=== PATIENT | female | born 1960 | race Caucasian/White ===

== ENCOUNTER 2025-02-12 17:16 | Emergency (ER) | payer SELFPAY ==
[2025-02-12] VITALS (7 sets, daily range): BP systolic 195–229; BP diastolic 88–100; PULSE 75–97; RESP 16; TEMP 36.6; O2SAT 98–100; BMI 18.1
--- NOTE | 2025-02-12 21:02 | ED_ITS ---
HPI - Dental/Oral General Chief complaint: Dental/Oral Stated complaint: headache, dental pain, throat pain Time Seen by Provider: 02/12/25 18:00 History of Present Illness HPI Narrative: 64-year-old female history of hypertension presents with right jaw pain and swelling that has been ongoing for some time but worse in the past few days for which she has not yet seen a dentist. She is able to eat and drink and swallow with no difficulty. Patient denies fever, chills, body aches, sore throat, cough. She has not taken anything for the pain. Other than what is stated 14 point review of system is negative. Location: Tooth # (29) Related Data Previous Rx's ?Medication ?Instructions ?Recorded diclofenac sodium 75 mg 75 mg PO BID PRN pain #30 ta bs 02/12/25 tablet,delayed release penicillin V potassium 500 mg 500 mg PO Q6H #28 tabs 0 02/12/25 tablet Allergies Allergy/AdvReac Type Severity Reaction Status Date / Time No Known Drug Allergies Allergy Verified 02/12/25 17:54 Review of Systems Review of Systems ROS Unobtainable: All systems reviewed & are unremarkable except as noted in HPI and below Patient History Smoking Status: Current every day smoker tobacco type: cigarettes Exam Narrative Exam Narrative: GENERAL: [64] year old patient appears stated age. Well-developed patient, in mild distress. HEAD: Atraumatic. Normocephalic. EYES: Pupils equal round and reactive. Extraocular motions intact. No scleral icterus. No injection or drainage. ENT: Nose without bleeding, purulent drainage. Throat without erythema, tonsillar hypertrophy or exudate. Airway patent. Dental caries 29, poor dentition overall NECK: Trachea midline. Non tender EXTREMITIES: No edema or joint tenderness. BACK: Nontender without deformity or crepitance. No flank tenderness. NEURO: AOx3. SKIN: No rash or erythema of visible areas Initial Vital Signs Initial Vital Signs: Vital Signs Temperature 97.8 F 02/12/25 17:52 Pulse Rate 97 H 02/12/25 17:52 Respiratory Rate 16 02/12/25 17:52 Blood Pressure 195/88 H 02/12/25 17:52 Pulse Oximetry 99 02/12/25 17:52 Oxygen Delivery Method Room Air 02/12/25 17:52 Course Vital Signs Vital signs: Vital Signs - 8 hr 02/12/25 17:52 02/12/25 19:57 02/12/25 19:58 Temperature 97.8 F Pulse Rate 97 H 85 85 Respiratory Rate 16 Blood Pressure 195/88 H Pulse Oximetry 99 99 100 Oxygen Delivery Method Room Air 02/12/25 19:58 02/12/25 20:00 02/12/25 20:00 Temperature Pulse Rate 77 Respiratory Rate Blood Pressure 229/100 H 211/96 H Pulse Oximetry 98 Oxygen Delivery Method Room Air 02/12/25 20:30 Temperature Pulse Rate 75 Respiratory Rate Blood Pressure Pulse Oximetry 100 Oxygen Delivery Method MDM - Dental/Oral MDM Narrative Medical decision making narrative: Vital signs, nurse triage note, medication list, previous ER visits, and all imaging studies reviewed. Patient given pen VK [place] and ibuprofen he. Patient will be discharged on pen VK and diclofenac. And to follow up with dentist. Differential diagnosis dental abscess, dental caries, gingivitis. Discharge Plan Departure Patient Disposition: Home Clinical Impression: Dental abscess Instructions: Tooth Abscess Activity Restrictions/Additional Instructions: Return with new or worsening symptoms. Take your medicines directed. Follow up with dentist in 1-2 weeks. Prescriptions: New penicillin V potassium 500 mg tablet 500 mg PO Q6H Qty: 28 0RF diclofenac sodium 75 mg tablet,delayed release (DR/EC) 75 mg PO BID PRN (Reason: pain) Qty: 30 0RF Stand Alone Forms: Patient Portal/API
[2025-02-12] MEDS: PENICILLIN VK 250 MG TABLET 500 MG PO (21:09)
[2025-02-12] MEDS: HYDROCODONE/ACET 5/325 TABLET 1 TAB PO (21:09)
[2025-02-12] MEDS: IBUPROFEN 400 MG TABLET 800 MG PO (21:10)
== END 2025-02-12 21:17 | disposition home or self-care (01) ==
PROVIDERS: Emergency Provider Family Medicine
DX: K04.7 Periapical abscess without sinus (principal)
CPT/HCPCS: 99283